=== PATIENT | male | born 1975 | race Two or more races ===

== ENCOUNTER 2017-06-14 09:43 | Emergency (ER) | payer SELFPAY ==
--- NOTE | 2017-06-14 10:17 | EDM.PDOC ---
ED HPI GENERAL MEDICAL PROBLEM - General Chief Complaint: ENT Problem Stated Complaint: SOMETHING IN RIGHT EYE Time Seen by Provider: 06/14/17 09:49 Source of Information: Reports: Patient, Family History Limitations: Reports: Language Barrier - History of Present Illness INITIAL COMMENTS - FREE TEXT/NARRATIVE: 41 y.o. patient was metal grinding last pm and felt some right eye discomfort this am. He denies any vision changes. Has pain when he opens and closes his right eye. Pt denied any other acute medical issues. Relative is in the room for translation. Onset: Today Onset Date: 06/13/17 Onset Time: 18:00 Duration: Day(s): Location: Reports: Face Quality: Reports: Ache, Burning Severity: Mild Improves with: Reports: Rest Worsens with: Reports: Movement Context: Reports: Other (Pt was metal grinding last pm and felt some right eye discomfort this am) Associated Symptoms: Reports: No Other Symptoms - Related Data Allergies Allergy/AdvReac Type Severity Reaction Status Date / Time No Known Allergies Allergy Verified 06/14/17 09:55 Home Meds: Home Meds Carboxymethylcellulose Sodium [Refresh Tears] 1 drop OP ASDIRECTED PRN 06/14/17 [History] Past Medical History Gastrointestinal History: Reports: None - Past Surgical History GI Surgical History: Reports: Appendectomy Social & Family History - Family History Family Medical History: Noncontributory - Tobacco Use Smoking Status *Q: Current Every Day Smoker Years of Tobacco use: 10 Packs/Tins Daily: 0.5 - Caffeine Use Caffeine Use: Reports: None - Alcohol Use Days Per Week of Alcohol Use: 2 Number of Drinks Per Day: 3 Total Drinks Per Week: 6 - Recreational Drug Use Recreational Drug Use: No ED ROS ENT - Review of Systems Review Of Systems: See Below Constitutional: Reports: No Symptoms HEENT: Reports: Eye Pain Respiratory: Reports: No Symptoms Endocrine: Reports: No Symptoms GI/Abdominal: Reports: No Symptoms : Reports: No Symptoms Musculoskeletal: Reports: No Symptoms Skin: Reports: No Symptoms Neurological: Reports: No Symptoms Psychiatric: Reports: No Symptoms Hematologic/Lymphatic: Reports: No Symptoms Immunologic: Reports: No Symptoms ED EXAM, ENT - Physical Exam Exam: See Below Exam Limited By: No Limitations General Appearance: Alert, WD/WN, Mild Distress Eye Exam: Right Eye: Conjunctival Injection, Other, Left Eye: Corneal Abrasion ( no seen with "blue light" needs slit lamp exam), Bilateral Eye: EOMI Ears: Normal External Exam Nose: Normal Inspection Mouth/Throat: Normal Inspection Head: Atraumatic, Normocephalic Neck: Normal Inspection, Supple, Non-Tender Respiratory/Chest: No Respiratory Distress, Lungs Clear, Normal Breath Sounds Cardiovascular: Normal Peripheral Pulses GI/Abdominal: Normal Bowel Sounds, Soft, Non-Tender (Male) Exam: Deferred Rectal (Males) Exam: Deferred Back: Normal Inspection, Full Range of Motion Extremities: Normal Inspection, Normal Range of Motion, Non-Tender, No Pedal Edema Neurological: Alert, Oriented, CN II-XII Intact, Normal Cognition, Other Psychiatric: Normal Affect Skin: Warm, Dry, Intact, Normal Color, No Rash Lymphatic: No Adenopathy Course - Vital Signs Text/Narrative:: 41 y.o. patient was metal grinding last pm and felt some right eye discomfort this am. He denies any vision changes. Has pain when he opens and closes his right eye. Pt denied any other acute medical issues. Relative is in the room for translation. PE: WNWD male with right eye pain Procedure: R eye was topically anaesthetized with julius and fluorescein was used to discover a corneal lesion. No Lesion was seen with the "blue light" Pt was painfree after 2 drops of Julius were applied Impression: Right eye pain, possible FB ED course: The eye clinc at [facility] was called. The clinic recommended the patient to come now and the pt will be further evaluated. Plan: D/C with instructions Last Recorded V/S: Last Vital Signs Temp 36.9 C 06/14/17 09:49 Pulse 92 06/14/17 09:49 Resp 18 06/14/17 09:49 BP 118/99 H 06/14/17 09:49 Pulse Ox 98 06/14/17 09:49 Departure - Departure Time of Disposition: 10:17 Disposition: Home, Self-Care 01 Condition: Fair Clinical Impression: Foreign body of right eye Qualifiers: Encounter type: initial encounter Qualified Code(s): T15.91XA - Foreign body on external eye, part unspecified, right eye, initial encounter - Discharge Information Instructions: Eye Foreign Body, [id number] Referrals: PCP,None [Primary Care Provider] - Forms: ED Department Discharge Additional Instructions: Refer to [facility] today; they are expecting you. Address: [address] [place] [address] Phone #: [phone]
== END 2017-06-14 10:28 | disposition home or self-care (01) ==
LOC: FB.ED 09:43
DX: T15.91XA Foreign body on external eye, part unspecified, right eye, initial encounter (principal); F17.210 Nicotine dependence, cigarettes, uncomplicated; X58.XXXA Exposure to other specified factors, initial encounter; Y93.89 Activity, other specified
CPT/HCPCS: 99283